=== PATIENT | female | born 1940 | race Caucasian/White ===

== ENCOUNTER 2021-11-16 18:43 | Emergency (ER) | payer OTHER ==
[~2021-11-16] VITALS: Ht 167.6 cm; Wt 53.5 kg
[~2021-11-16 18:43] MED LIST: EC ASPIRIN325 MG PO; Z.0.AMBIEN10 MG PO; Z.0.CITALOPRAM HBR40 PO; Z.0.DIOVAN80 MG PO; Z.0.PRAVACHOL80 MG PO; Z.0.TOPROL XL50 MG PO; Z.0.XANAX0.25 MG PO
[2021-11-16] MEDS ORDERED: ACETAMINOPHEN/CODEINE 300MG - 30MG TAB PO ONE (19:00)
[2021-11-16] MEDS ORDERED: VALSARTAN 160 MG TAB ONE (19:36)
[2021-11-16] MEDS ORDERED: ACETAMINOPHEN-1 EAC4 PO (19:48)
== END 2021-11-16 20:15 | disposition home or self-care (01) ==
LOC: ER 18:52
DX: S52.591A Other fractures of lower end of right radius, initial encounter for closed fracture (principal); S52.611A Displaced fracture of right ulna styloid process, initial encounter for closed fracture; W01.0XXA Fall on same level from slipping, tripping and stumbling without subsequent striking against object, initial encounter; Y93.01 Activity, walking, marching and hiking; Y92.89 Other specified places as the place of occurrence of the external cause; I73.9 Peripheral vascular disease, unspecified; I25.10 Atherosclerotic heart disease of native coronary artery without angina pectoris
CPT/HCPCS: 99283